=== PATIENT | male | born 1950 | race Caucasian/White ===

== ENCOUNTER → 2017-01-06 | Outpatient (CLI) | payer OTHER, MEDICAID ==
[~2017-01-06] MED LIST: IOPAMIDOL (ISOVUE 370) 100 ML BTL IV ONE
--- NOTE | 2017-01-06 18:35 | CT ---
CT Angiography of the Abdomen and Pelvis Clinical Indications: Evaluate abdominal aortic aneurysm. Comparison: July 24, 2015. Technique: Thinly collimated multidetector helical data were obtained through the abdomen and pelvis during the administration of 100 mL of Isovue 370 IV contrast during the arterial phase of contrast enhancement. Repeat 5-mm images are obtained in venous phase. Images were then transferred to an [facility] workstation where multiplanar and three-dimensional reconstructions were performed by the ra diologist. Appropriate images were stored on PACS. Dose reduction techniques were utilized. Findings: CT Angiography: The infrarenal abdominal aortic aneurysm currently measures 4.1 x 4.2 cm. It has sl ightly increased from the previous scan of 4 x 4 cm. It has very little mural thrombus, and a very lo ng neck from the renal arteries. There is no significant angulation. No atherosclerotic plaque. The l owest renal artery is the right one, table position 139.63. The aorta transverse diameter measures 19 x 22 mm at this level. 1 cm down, aorta measures 22 x 23 mm. After that it starts to dilate, measuri ng 28 x 32 mm at table position 155. Therefore, the neck length is somewhere between 1 and 1.5 cm. SMA and celiac trunk are widely patent. Below the aneurysm, distal abdominal aorta is normal in size. There is mild dilatation of the right distal common iliac artery at 18 mm. The left common iliac art jose m measures 11 mm. The internal iliac arteries are widely patent. The common femoral arteries are go od size, measuring [address] Abdomen and Pelvis: There is no evidence for mass. No adenopathy. Lung bases are clear. No ascite s. Bones and soft tissues are normal for patient's age. There is mild degenerative lumbar spine disk disease, worst at L4-L5 with disk height loss. No significant canal or foraminal stenosis. Impression: 1. Slow growing infrarenal abdominal aortic aneurysm at 4.1 x 4.2 cm, slightly increased from 4 x 4 c m on July 24, 2015. 2. The most limiting factor for this patient now is at the infrarenal neck, which at this point estim ates between 1 and 1.5 cm for stent graft repair. 3. I do think we still have time to continue to monitor this patient without significantly encroachin g upon the infrarenal neck, given the slow growth rate of this aneurysm. Follow up in one year is nereyda sonable, and I would follow it with CT angiogram rather than ultrasound, which would not be able to e valuate in detail that infrarenal neck. 4. If patient wants treatment currently, I'm happy to see the patient in consultation for endovascula r repair. This patient is an excellent percutaneous candidate without cutdowns.
== END ==
LOC: CIMAGING 10:02
PROVIDERS: ATTEND Internal Medicine Cardiovascular Disease
DX: I71.4 Abdominal aortic aneurysm, without rupture (principal); N19 Unspecified kidney failure
CPT/HCPCS: 74175; Q9967; 82565-PO

== ENCOUNTER → 2017-01-30 | Outpatient (CLI) | payer OTHER, MEDICAID | LOC: FIMAGING 16:52 | PROVIDERS: ATTEND Radiology Diagnostic Radiology | DX: Z01.818 Encounter for other preprocedural examination (principal) ==

== ENCOUNTER 2017-03-24 06:38 | Inpatient (IN) | payer OTHER, MEDICAID ==
[2017-03-24] MEDS ORDERED: NS 1,000 ML IV SCH ×2 (08:15→13:00)
--- NOTE | 2017-03-24 08:15 | CPEKG ---
Heart Rate: 58 RR Interval: 1034 P-R Interval: 184 QRSD Interval: 84 QT Interval: 428 QTC Interval: 421 P Rienzi: 43 QRS Rienzi: 5 T Wave Rienzi: 24 EKG Severity - NORMAL ECG - EKG Impression: SINUS RHYTHM Electronically Signed By: Juan Daniel Eason 24-Mar-2017 08:40:47
[2017-03-24] MEDS ORDERED: LR 1,000 ML IV ONE (08:30)
[2017-03-24] MEDS ORDERED: fentaNYL 100 MCG/2 ML INJ ONE ×2 (08:30)
[2017-03-24] MEDS ORDERED: CEFAZOLIN 1 GM/DEXTROSE/50 ML BAG IV ONE (08:31)
[2017-03-24] MEDS ORDERED: ceFAZolin 2 GM/DEXTROSE 100 ML IV ONE (08:35)
[2017-03-24] MEDS ORDERED: PROPOFOL/EMULSION 500 MG/50 ML BOTTLE IV ONE (08:39)
[2017-03-24] MEDS ORDERED: HEPARIN 10,000 UNIT/10 ML MDV ONE ×2 (09:57→14:19)
[2017-03-24] MEDS ORDERED: IOPAMIDOL (ISOVUE-300) 100 ML BTL IV ONE ×2 (09:57→12:12)
[2017-03-24] MEDS ORDERED: ONDANSETRON 4 MG/2 ML VIAL ONE (13:09)
[2017-03-24] MEDS ORDERED: ONDANSETRON 4 MG/2 ML VIAL IVP PRN (13:17)
[2017-03-24] MEDS: PANTOPRAZOLE SODIUM 40 MG in NS 100 ML IV SCH (13:28)
--- NOTE | 2017-03-24 14:55 | PDGENHP ---
History and Physical - Chief Complaint post AAA repair - History of Present Illness 66 yo M with PMH of CAD, HTN, HLD presenting s/p endovascular infrarenal AAA repair. At the time of my evaluation patient is somewhat somnolent due to the sedation from earlier procedure, but otherwise denies any issues. He has no chest or abdominal pain, no sob, has not had fever or chills. He is to lie flat for several more hours and denies any issues with that. History Information - Allergies/Home Medication List Allergies/Adverse Reactions: acetaminophen [From Percocet] Allergy (Verified 03/14/17 16:56) diazepam [From Valium] Allergy (Verified 03/14/17 16:56) oxycodone [From Percocet] Allergy (Verified 03/14/17 16:56) Home Medications: Bystolic 20 mg PO DAILY 03/14/17 [Last Taken 03/24/17] CeleBREX 100 mg PO BID 03/14/17 [Last Taken 03/24/17] Magnesium 400 mg PO DAILY 03/14/17 [Last Taken 03/24/17] Albuterol Sulfate [ALBUTEROL SULFATE] 0.63 mg IH TID 03/24/17 [Last Taken ] Aspirin [Aspirin 325 mg (*)] 325 mg PO DAILY 03/24/17 [Last Taken 03/24/17] Omeprazole [Omeprazole] 40 mg PO DAILY 03/24/17 [Last Taken 03/24/17] Rosuvastatin Calcium [Crestor 20mg (*)] 20 mg PO HS 03/24/17 [Last Taken ] Tiotropium [place] [Spiriva] 1 puffs IH DAILY 03/24/17 [Last Taken Unknown] Triamterene/Hctz 37.5/25 [Dyazide 37.5/25 (*)] 2 each PO DAILY 03/24/17 [Last Taken 03/24/17] amLODIPine BESYLATE [Norvasc 5 mg (*)] 5 mg PO HS 03/24/17 [Last Taken 03/23/17] I have personally reviewed and updated: family history, medical history, social history, surgical history - Past Medical History coronary artery disease, CHF (diastolic heart failure), hypertension, hyperlipidemia Additional medical history: nocturnal hypoxia - Surgical History Reports: angioplasty - Family History Negative for: CAD - Social History Smoking Status: Former smoker Alcohol Use: None Drug Use: None Additional social history: Review of Systems ROS: 10pt was reviewed & negative except for what was stated in HPI & below Physical Exam Temp Pulse Resp BP Pulse Ox 36.6 C 75 15 115/61 93 03/24/17 13:00 03/24/17 13:59 03/24/17 13:59 03/24/17 13:59 03/24/17 13:59 O2 (L/minute) 2 Constitutional: no apparent distress, appears nourished Eyes: PERRL Ears, Nose, Mouth, Throat: moist mucous membranes Cardiovascular: regular rate and rhythym, no murmur, rub, or gallop, No edema Respiratory: no respiratory distress, no rales or rhonchi Gastrointestinal: normoactive bowel sounds, soft, non-tender abdomen Skin: warm, normal color Musculoskeletal: no muscle tenderness, No asymmetric calves Neurologic: AAOx3 Psychiatric: interacting appropriately, not anxious, not encephalopathic Lab Data & Imaging Review Visualized and Interpreted Chest x-ray results: Yes Chest X-Ray results: no infiltrate Visualized and Interpreted EKG results: Yes EKG Interpretation: Positive for: normal sinsus rhythm Assessment & Plan Assessment: AAA (abdominal aortic aneurysm) (Acute) 66 yo M with PMH of CAD presenting s/p endovascular AAA repair # endovascular AAA repair: monitoring overnight in ICU, currently lying flat, no evidence of complications or other issues at this time # CAD: with hx of PCI, no current issues, ecg wnl # htn: will resume home amlodipine # HLD: continue statin # mary: continue nocturnal supplemental o2 # dispo: IP status, high risk presenting issues Patient new to my care. Old records reviewed and summarized as above. Care plan reviewed with Dr. Mcbride.
[2017-03-24] MEDS ORDERED: ALBUTEROL SULFATE 0.63 MG IH SCH (16:00)
[2017-03-24] MEDS: ALBUTEROL 3 ML DEYVIAL IH SCH ×2 (16:49→20:08)
--- NOTE | 2017-03-24 17:19 | SOAPPROG ---
SODEVIN Progress Note Assessment/Plan: Assessment: Doing well post AAA stentgraft repair. [place] already out. Plan: Can ambulate tonight as tolerated. 03/24/17 17:18 Subjective: No complaints. Awake, watching TV. Would love to get out of bed and walk a bit. Objective: Vital Signs Temp Pulse Resp BP Pulse Ox 36.6 C 81 18 131/79 H 93 03/24/17 13:00 03/24/17 16:00 03/24/17 16:00 03/24/17 16:00 03/24/17 16:00 03/23/17 03/24/17 03/25/17 05:59 05:59 05:59 Intake Total 1600 Output Total 1375 Balance 225 Little tinge of blood on LT dressing. RT clean. No visible hematoma on either side. 2+ pedal pulses. ICD10 Worksheet Patient Problems: Problems Problem Status Onset AAA (abdominal aortic aneurysm) Acute
[2017-03-24] MEDS ORDERED: amLODIPine BESYLATE 5 MG TAB PO SCH (21:00)
[2017-03-24] MEDS ORDERED: ROSUVASTATIN CALCIUM 10 MG TAB PO SCH (21:00)
[2017-03-25 05:30] LABS: % IMMATURE GRANULYOCYTES 0.4 % (0.0-1.1); ABSOLUTE IMMATURE GRANULOCYTES 0.06 10^3/uL (0.00-0.10); ADD DIFF? NO; ADD MORPH? NO; ADD SCAN? NO; ATYPICAL LYMPHOCYTE FLAG 0 (0-99); FRAGMENT RBC FLAG 0 (0-99); HEMATOCRIT 37.4 % (40.0-51.0); HEMOGLOBIN 13.2 g/dL (13.7-17.5); LEFT SHIFT FLG 0 (0-99); LIPEMIA HEMOLYSIS FLAG 90 (0-99); MEAN CELL HEMOGLOBIN 31.1 pg (27.9-34.1); MEAN CELL HEMOGLOBIN CONCENTR. 35.3 g/dL (32.4-36.7); MEAN CELL VOLUME 88.2 fL (81.5-99.8); MEAN PLATELET VOLUME 9.1 fL (8.7-11.7); PLATELET CLUMPS FLAG 0 (0-99); PLATELET COUNT 124 10^3/uL (150-400); RED BLOOD CELL COUNT 4.24 10^6/uL (4.40-6.38); RED CELL DISTRIBUTION WIDTH 12.6 % (11.5-15.2)
[2017-03-25 05:53] LABS: ANION GAP 8 mEq/L (8-16); CALCIUM 8.8 mg/dL (8.5-10.4); CARBON DIOXIDE 25 mEq/l (22-31); CHLORIDE 106 mEq/L (97-110); CREATININE 0.8 mg/dL (0.7-1.3); GLOMERULAR FILTRATION RATE > 60; GLUCOSE 122 mg/dL (70-100); POTASSIUM 4.6 mEq/L (3.5-5.2); SODIUM 139 mEq/L (134-144)
[2017-03-25 06:18] VITALS: TEMP 98.4
--- NOTE | 2017-03-25 08:54 | SOAPPROG ---
KISHA Progress Note Assessment/Plan: Assessment: Doing well post AAA stentgraft repair. [place] already out. Plan: Can ambulate tonight as tolerated. 03/24/17 17:18 03/25/17 08:52 1. S/P AAA: stable 2. Back pain: likely from laying on hard table for hours yesterday. Encourage ambulation, which per patient helps the pain 3. Increased WBC: Afebrile. Likely reactive. Will repeat another one at noon. 4. OK to D/C from IR standpoint if noon labs are stable. Subjective: Back pain, which is worse than his baseline. Otherwise no complaints. Objective: Vital Signs Temp Pulse Resp BP Pulse Ox 36.9 C 77 15 122/53 H 95 03/25/17 06:00 03/25/17 06:00 03/25/17 06:00 03/25/17 06:00 03/25/17 06:00 Laboratory Results 03/25/17 05:20 03/25/17 05:20 03/24/17 03/25/17 03/26/17 05:59 05:59 05:59 Intake Total 3029 Output Total 5635 Balance 254 Exam unchanged. Labs noted. ICD10 Worksheet Patient Problems: Problems Problem Status Onset AAA (abdominal aortic aneurysm) Acute
[2017-03-25] MEDS: PANTOPRAZOLE SODIUM 40 MG in NS 100 ML IV SCH (08:58)
[2017-03-25] MEDS: TIOTROPIUM INHALER 18 MCG/DOSE 5 DOSE/MDI IH SCH ×2 (08:58→09:36)
[2017-03-25] MEDS ORDERED: NEBIVOLOL HCL 5 MG TAB PO SCH (09:00)
[2017-03-25] MEDS ORDERED: ENOXAPARIN 40 MG/0.4 ML SYR SC SCH (09:00)
[2017-03-25] MEDS ORDERED: PANTOPRAZOLE SODIUM 40 MG TAB PO SCH (09:00)
[2017-03-25] MEDS ORDERED: MAGNESIUM OXIDE 400 MG TAB PO SCH (09:00)
[2017-03-25] MEDS ORDERED: TRIAMTERENE/HCTZ 37.5/25 1 EACH CAP PO SCH (09:00)
[2017-03-25] MEDS: ALBUTEROL 3 ML DEYVIAL IH SCH (09:37)
[2017-03-25 09:45] VITALS: BP 119/63
[2017-03-25 10:55] VITALS: PULSE 81; RESP 18; O2SAT 93
[2017-03-25 12:18] LABS: HEMOGLOBIN 13.9 g/dL (13.7-17.5); MEAN CELL HEMOGLOBIN 30.8 pg (27.9-34.1); MEAN CELL HEMOGLOBIN CONCENTR. 34.8 g/dL (32.4-36.7); MEAN CELL VOLUME 88.5 fL (81.5-99.8); RED BLOOD CELL COUNT 4.52 10^6/uL (4.40-6.38); RED CELL DISTRIBUTION WIDTH 12.7 % (11.5-15.2)
--- NOTE | 2017-03-25 13:59 | SOAPPROG ---
KISHA Progress Note Assessment/Plan: Assessment: Doing well post AAA stentgraft repair. [place] already out. Plan: Can ambulate tonight as tolerated. 03/24/17 17:18 03/25/17 08:52 1. S/P AAA: stable 2. Back pain: likely from laying on hard table for hours yesterday. Encourage ambulation, which per patient helps the pain 3. Increased WBC: Afebrile. Likely reactive. Will repeat another one at noon. 4. OK to D/C from IR standpoint if noon labs are stable. 03/25/17 13:56 D/C home today. No strenuous activity x 5 days, including heavy lifting > 20 lbs, hiking and biking. Normal daily activity is OK. IR will call in 6mo for CTA follow up. Objective: Vital Signs Temp Pulse Resp BP Pulse Ox 36.9 C 81 18 119/63 93 03/25/17 06:00 03/25/17 10:00 03/25/17 10:00 03/25/17 10:00 03/25/17 10:00 Laboratory Results 03/25/17 12:11 03/25/17 05:20 03/24/17 03/25/17 03/26/17 05:59 05:59 05:59 Intake Total 3029 Output Total 2775 Balance 254 Repeat labs show decreasing WBC and increasing HCT. ICD10 Worksheet Patient Problems: Problems Problem Status Onset AAA (abdominal aortic aneurysm) Acute
--- NOTE | 2017-04-04 21:39 | GDS ---
[f rep st] DISCHARGE SUMMARY DISCHARGE DIAGNOSES: 1. Status post endovascular abdominal aortic aneurysm repair. 2. Chronic medical problems including coronary artery disease, hypertension, hyperlipidemia, obstru ctive sleep apnea. CONSULTATIONS: Interventional radiology. PROCEDURES PERFORMED: 1. Abdominal angiography. 2. Endovascular repair of abdominal aortic aneurysm. 3. Transcatheter embolization. HOSPITAL COURSE BY PROBLEM: 1. Endovascular repair of AAA. This went smoothly, was performed by Dr. Mcbride. Please see her notes for further details. He was monitored overnight to follow in case any complications arise. He did well. He was discharged home. 2. Chronic medical problems including coronary artery disease, hypertension, hyperlipidemia, LUIS E. No changes were made in his usual management. DISPOSITION: Patient discharged to home. MEDICATIONS: Please see EHR. FOLLOWUP: With Dr. Mcbride, as well as primary care physician in the next 1-2 weeks. Greater than 35 minutes spent in discharge of this patient, more than half in coordination of care a nd establishing followup care plans. /[id number]/MODL
== END 2017-03-25 14:30 | disposition home or self-care (01) | DRG 269 ==
LOC: FIMAGING 06:38 → F2N 12:50
PROVIDERS: ADMIT Radiology Diagnostic Radiology; ATTEND Radiology Diagnostic Radiology
PROC: 03LP3DZ Occlusion of Right Vertebral Artery with Intraluminal Device, Percutaneous Approach (ICD-10-PCS; principal; 2017-03-24)
PROC: 04V03DZ Restriction of Abdominal Aorta with Intraluminal Device, Percutaneous Approach (ICD-10-PCS; principal; 2017-03-24)
PROC: 03L Upper Arteries, Occlusion (ICD-10-PCS; principal; 2017-03-24)
DX: I71.4 Abdominal aortic aneurysm, without rupture (principal); I10 Essential (primary) hypertension; I25.10 Atherosclerotic heart disease of native coronary artery without angina pectoris; E78.5 Hyperlipidemia, unspecified; G47.33 Obstructive sleep apnea (adult) (pediatric); Z87.891 Personal history of nicotine dependence
CPT/HCPCS: 97161-GP; 97165-GO; C1725; C1758; C1769; C1874; C1893; C1894; G8978-GP-CI; G8979-GP-CI; G8987-GO-CI; G8988-GO-CI; G8989-GO-CI; J0690; J1644; J1650; J2405; J2704; J3010; Q9967

== ENCOUNTER 2017-05-08 12:14 | Emergency (ER) | payer OTHER, MEDICAID ==
[2017-05-08 12:20] VITALS: O2SAT 94
--- NOTE | 2017-05-08 13:18 | EDPHY ---
H & P Stated Complaint: sahara higuera 03/24 saw doc for groin check but was feeling fatigued/sob Time Seen by Provider: 05/08/17 13:12 HPI/ROS: CHIEF COMPLAINT: Groin wound HISTORY OF PRESENT ILLNESS: The patient is a 67-year-old man who comes to the emergency department for evaluation of a wound to his groin. He had a endovascular AAA repair a month and a half ago. He noticed 4 days ago that he had a small retained stitch in his groin and there is small amount of purulence. That drained and since the small amount of erythema has decreased. There is no significant swelling. No pain. Overall he states the wound is improving. He spoke with Dr. Janna Mcbride who performed the procedure and she recommended he come to the emergency department to be evaluated. REVIEW OF SYSTEMS: Constitutional: denies: chills, fever, recent illness, recent injury EENTM: denies: blurred vision, double vision, nose congestion Respiratory: denies: cough, shortness of breath Cardiac: denies: chest pain, irregular heart rate, lightheadedness, palpitations Gastrointestinal/Abdominal: denies: abdominal pain, diarrhea, nausea, vomiting, blood streaked stools Genitourinary: denies: dysuria, frequency, hematuria, pain Musculoskeletal: denies: joint pain, muscle pain Skin: See HPI Neurological: denies: headache, numbness, paresthesia, tingling, dizziness, weakness Hematologic/Lymphatic: denies: blood clots, easy bleeding, easy bruising Immunologic/allergic: denies: HIV/AIDS, transplant EXAM: GENERAL: Well-appearing, well-nourished and in no acute distress. HEAD: Atraumatic, normocephalic. EYES: Pupils equal round and reactive to light, extraocular movements intact, sclera anicteric, conjunctiva are normal. ENT: TMs normal, nares patent, oropharynx clear without exudates. Moist mucous membranes. NECK: Normal range of motion, supple without lymphadenopathy or JVD. LUNGS: Breath sounds clear to auscultation bilaterally and equal. No wheezes rales or rhonchi. HEART: Regular rate and rhythm without murmurs, rubs or gallops. ABDOMEN: Soft, nontender, normoactive bowel sounds. No guarding, no rebound. No masses appreciated. BACK: No CVA tenderness, no spinal tenderness, step-offs or deformities EXTREMITIES: Normal range of motion, no pitting or edema. No clubbing or cyanosis. NEUROLOGICAL: Cranial nerves II through XII grossly intact. Normal speech, normal gait. 5/5 strength, normal movement in all extremities, normal sensation PSYCH: Normal mood, normal affect. SKIN: the patient has a small pustule around the site of where a stitch was retained. It is now removed and draining and improving. Source: Patient Exam Limitations: No limitations - Personal History Current Tetanus/Diphtheria Vaccine: Unsure - Medical/Surgical History Hx Asthma: No Hx Chronic Respiratory Disease: Yes Hx Diabetes: No Hx Cardiac Disease: No Hx Renal Disease: No Hx Cirrhosis: No Hx Alcoholism: No Hx HIV/AIDS: No Hx Splenectomy or Spleen Trauma: No Other PMH: triple a/htn/copd - Family History Significant Family History: No pertinent family hx - Social History Smoking Status: Never smoked Alcohol Use: None Drug Use: None Constitutional: Initial Vital Signs Temperature (C) 37.1 C 05/08/17 12:17 Heart Rate 78 05/08/17 12:17 Respiratory Rate 18 05/08/17 12:17 Blood Pressure 127/84 H 05/08/17 12:17 O2 Sat (%) 94 05/08/17 12:17 O2 Delivery Mode Room Air Allergies/Adverse Reactions: acetaminophen [From Percocet] Allergy (Verified 05/08/17 12:15) diazepam [From Valium] Allergy (Verified 05/08/17 12:15) oxycodone [From Percocet] Allergy (Verified 05/08/17 12:15) Home Medications: Medication Instructions Recorded Bystolic 20 mg PO DAILY 03/14/17 CeleBREX 100 mg PO BID 03/14/17 Magnesium 400 mg PO DAILY 03/14/17 Albuterol Sulfate [ALBUTEROL 0.63 mg IH TID 03/24/17 SULFATE] Aspirin [Aspirin 325 mg (*)] 325 mg PO DAILY 03/24/17 Omeprazole 40 mg PO DAILY 03/24/17 Rosuvastatin Calcium [Crestor 20mg 20 mg PO HS 03/24/17 (*)] Tiotropium [place] [Spiriva] 1 puffs IH DAILY 03/24/17 Triamterene/Hctz 37.5/25 [Dyazide 2 each PO DAILY 03/24/17 37.5/25 (*)] amLODIPine BESYLATE [Norvasc 5 mg 5 mg PO HS 03/24/17 (*)] Medical Decision Making ED Course/Re-evaluation: Patient has a very small pustule from retained foreign body. That is now improving after the stitch was removed. He is not febrile. He has no systemic symptoms. No significant erythema. I do not think that blood work or imaging is warranted. The patient is happy with this. We will discharge him at this time. 5:15 p.m. I spoke with Dr. Janna Mcbride who was requesting that we order a CBC that she will follow up with. Differential Diagnosis: Partial list of the Differential diagnosis considered include but were not limited to; retained foreign body, retained suture, pustule and although unlikely based on the history and physical exam, I also considered abscess, deep wound infection, graft infection. I discussed these differential diagnoses and the plan with the patient as well as the usual and expected course. The patient understands that the diagnosis is provisional and that in medicine we are not always correct and that further workup is often warranted. Usual and customary warnings were given. All of the patient's questions were answered. The patient was instructed to return to the emergency department should the symptoms at all worsen or return, otherwise to followup with the physician as we discussed. Departure - Departure Disposition: Home, Routine, Self-Care Clinical Impression: Retained suture Qualifiers: Encounter type: initial encounter Qualified Code(s): T81.89XA - Other complications of procedures, not elsewhere classified, initial encounter Condition: Fair Instructions: Wound Infection (ED) Referrals: Patient,NotPresent [Primary Care Provider] - As per Instructions Janna Mcbride MD [Medical Doctor] - As per Instructions
[2017-05-08 13:43] VITALS: BP 139/89; PULSE 76; RESP 16; TEMP 98.2
== END 2017-05-08 13:43 | disposition home or self-care (01) ==
DX: T81.89XA Other complications of procedures, not elsewhere classified, initial encounter (principal); I10 Essential (primary) hypertension; J44.9 Chronic obstructive pulmonary disease, unspecified; L53.9 Erythematous condition, unspecified; Z79.84 Long term (current) use of oral hypoglycemic drugs; Y82.8 Other medical devices associated with adverse incidents

== ENCOUNTER → 2017-07-09 | Outpatient (CLI) | payer OTHER, MEDICAID ==
[~2017-07-09] MED LIST changes: -IOPAMIDOL (ISOVUE 370) 100 ML BTL IV ONE; +IOPAMIDOL (ISOVUE-370) 150 ML BTL IV ONE
== END ==
LOC: CIMAGING 07:46
PROVIDERS: ATTEND Radiology Diagnostic Radiology
DX: I71.4 Abdominal aortic aneurysm, without rupture (principal)
CPT/HCPCS: 74174; Q9967; 82565-PO

== ENCOUNTER → 2018-05-08 | Outpatient (CLI) | payer OTHER, MEDICAID | LOC: BHCLAF 09:15 | PROVIDERS: ATTEND Internal Medicine Cardiovascular Disease | DX: I71.4 Abdominal aortic aneurysm, without rupture (principal); I71.2 Thoracic aortic aneurysm, without rupture; E78.5 Hyperlipidemia, unspecified; I10 Essential (primary) hypertension | CPT/HCPCS: 93005-PO ==

== ENCOUNTER → 2018-09-22 | Outpatient (CLI) | payer OTHER, MEDICAID ==
[~2018-09-22] MED LIST changes: +IOPAMIDOL (ISOVUE 370) 100 ML BTL IV ONE; -IOPAMIDOL (ISOVUE-370) 150 ML BTL IV ONE
== END ==
LOC: CIMAGING 09:14
PROVIDERS: ATTEND Radiology Diagnostic Radiology
DX: Z09 Encounter for follow-up examination after completed treatment for conditions other than malignant neoplasm (principal); I71.4 Abdominal aortic aneurysm, without rupture; T82.898A Other specified complication of vascular prosthetic devices, implants and grafts, initial encounter
CPT/HCPCS: 74174; Q9967; 82565-PO

== ENCOUNTER → 2019-03-16 | Outpatient (CLI) | payer OTHER, MEDICAID | LOC: CIMAGING 14:58 | PROVIDERS: ATTEND Internal Medicine Cardiovascular Disease | DX: I71.4 Abdominal aortic aneurysm, without rupture (principal); R07.9 Chest pain, unspecified; Z95.5 Presence of coronary angioplasty implant and graft | CPT/HCPCS: 74174; Q9967 ==